=== PATIENT | male | born 1975 | race Caucasian/White ===

== ENCOUNTER 2020-02-12 09:40 | Inpatient (IN) ==
--- NOTE | 2020-02-12 10:04 | PROVIDER DOCUMENTATION ---
HPI-General Adult - General Chief Complaint: Extremity Injury Stated Complaint: extremity pain Time Seen by Provider: 02/12/20 09:48 Source: patient Allergies/Adverse Reactions: Patient Allergies Allergy/AdvReac Type Severity Reaction Status Date / Time Penicillins Allergy Mild RASH Verified 05/05/19 13:40 Home Medications: Home Medication List Medication Instructions Recorded Confirmed Last Taken Type Famotidine [Pepcid] 20 mg PO DAILY #20 tab 05/05/19 Unknown Rx Prednisone 20 mg PO DIRECTED #18 tab 05/05/19 Unknown Rx - History of Present Illness -Gen Adult Nature of Presenting Problems: Pt presents with 3 day h/o RUE swelling and pain. Admits he abuses methamphetamines and injected into right forearm Friday and immediately had swelling in right hand that has progressed to entire RUE. Developed open ulcerations at sites of IVDU on right forearm and wrist that has progressed to shallow open lesions to inner forearms. Has pain in entire RUE from fingers to axilla and now developing pain in right cervical area. Denies n/t in fingers but has limited ROM of fingers and wrist due to pain and swelling. Location of Pain/Injury: reports: upper extremity (right) Pain Radiation: reports: no radiation Body: 1 - erythema, pain, swelling, multiple open lesions and ulcerations from IVDU Quality of Pain: reports: aching, burning, pressure, stabbing, throbbing, tightness Severity: reports: severe Onset/Duration: reports: 3 days ago Timing: reports: getting worse Context/Activities at Onset: reports: other (IVDU) Modifying Factors: improves with: other (has taken seroquel and gabapentin for pain) Associated Symptoms: reports: arm pain, back/neck pain, fatigue, joint pain, malaise, muscle aches. denies: chest pain, cough, diaphoresis, diarrhea, fever/chills, nausea, shortness of breath, sensory/motor loss Similar Symptoms Previously?: No Recently seen or treated by another doctor?: No Review of Systems - Adult - REVIEW OF SYSTEMS - ADULT Constitutional: denies: chills, fever Eyes: denies: blurred vision, double vision Cardiovascular: denies: chest pain Respiratory: denies: cough, shortness of breath Gastrointestinal: denies: diarrhea, nausea, vomiting Musculoskeletal: reports: other (RUE pain and swelling) Integumentary: reports: see HPI Neurological: denies: numbness, paresthesia Psychiatric: reports: anti-depressant use, alcohol/drug dependence All Other Systems: Reviewed and Negative Past History - Adult - PAST MEDICAL HISTORY-ADULT Review of Records: reports: Old Records Reviewed, Nursing Assessment Review, Medications Reviewed Major Childhood Illnesses: reports: denies history Cardiovascular: reports: denies history Respiratory: reports: sleep apnea Gastrointestinal: reports: denies history Obstetrical/Gynecological: reports: denies history Genitourinary: reports: denies history Musculoskeletal: reports: denies history Neurological: reports: Seizures/Epilepsy Endocrine/Immune: reports: Diabetes Other Conditions: reports: denies history - PRIOR SURGERIES/PROCEDURES Surgical/Procedure History: reports: other (top lip ) - IMMUNIZATION STATUS Childhood Immunizations: See Nurse Assessment Flu Vaccine: See Nurse Assessment - FAMILY HISTORY Family History: reviewed, not pertinent - SOCIAL HISTORY Smoking: less than 1 pack/day Provider spent 3-5 mins advising pt. on dangers of tobacco.: Discussed manners to quit use, and f/u contacts for add'l counseling. Substance Use: amphetamines, other (gabapentin and seroquel) Alcohol Use Frequency: never Occupation: unemployed Physical Exam-General - PHYSICAL EXAM-ADULT Initial Vital Signs Reviewed: Yes - CONSTITUTIONAL General Appearance: appears well, alert, mild distress - EYES Eyes: PERRL/EOMI - HEAD, EARS, NOSE, MOUTH & THROAT HENMT: normocephalic/atraumatic. negative: moist mucous membranes (dry mouth) - NECK Neck: non-tender, full range of motion, supple. negative: lymphadenopathy - RESPIRATORY Respiratory: chest non-tender, lungs clear, wheezing (right upper lobe). negative: crackles, rales, rhonchi - CARDIOVASCULAR Cardiovascular: regular rate, rhythm - GASTROINTESTINAL (ABDOMEN) Abdominal Exam: normal bowel sounds, non tender, soft. negative: distended, guarding, rigid, rebound, tenderness, hernia, mass - MUSCULOSKELETAL Extremity: tenderness (RUE with edema circumfrentially, open ulcerations to radial aspect, midforearm and distal radius at wrist. Open shallow lesions to inner forearm that is weaping clear fluid), other (right fingers with good capillary refill. Entire RUE with erythema and warmth) - SKIN Integumentary: swelling, tenderness, warm, other (evidence of IVDU in LUE) - NEUROLOGIC Neurologic: grossly normal, no motor/sensory deficits - PSYCHIATRIC Psych/Mental Status: other (slow mentation) Progress - PLAN OF CARE/RESULTS Progress/Plan/Lab Results: Vital Signs - 8 hr 02/12/20 09:49 Temperature 97.8 F Pulse Rate 114 H Respiratory Rate 19 Blood Pressure 149/90 O2 Sat by Pulse Oximetry 97 Result Diagrams: 02/12/20 10:05 02/12/20 10:05 - CONSULTS/PCP/HOSPITALIST Notification #1 *Consult/PCP/Hospitalist*: Ann-Marie Time Discussed: 12:08 Consult Disposition: Will see in ED Departure - Departure Date of Disposition Decision: 02/12/20 Time of Disposition Decision: 12:08 DIAGNOSIS: Cellulitis of right arm Disposition: ADMITTED INPATIENT 09 Certified Medical Emergency: Emergent Condition: Stable Referrals and Follow-Ups: None,PCP [Primary Care Provider] - - Critical Care Note This patient required my direct & personal management of CC.: No Attestation - Physician/ JAREK Attestation Patient care was provided by Advanced Practice Provider:: Yes Advanced Practice Provider:: Janny Deleon Advanced Practice Provider documentation review:: The Mid-level provider documentation, treatment plan and medical decision making was reviewed by the physician who agrees with all treatment and medical decision making by the [facility]. The physician spent face to face time with patient:: Yes (Dr. Duke at bedside for exam and to explain admission) Advanced Practice Provider documentation review:: Supervising physician onsite and consulted in the evaluation and care of this patient. The physician did have a face to face encounter with the patient.
[2020-02-12 10:18] LABS: URINE SOURCE CLEAN CATCH
[2020-02-12 10:19] LABS: BILIRUBIN URINE NEGATIVE (NEGATIVE); BLOOD URINE NEGATIVE (NEGATIVE); COLOR STRAW; GLUCOSE URINE >1000 mg/dL (NEGATIVE); KETONE URINE 20 mg/dL (NEGATIVE); LEUKOCYTES URINE NEGATIVE (NEGATIVE); NITRITE URINE NEGATIVE (NEGATIVE); PH URINE 6.5; PROTEIN URINE NEGATIVE (NEGATIVE); SP GRAVITY URINE 1.039; TURBIDITY URINE CLEAR (CLEAR); UROBILINOGEN URINE NORMAL (NORMAL)
[2020-02-12 10:21] LABS: UR EPITHELIAL CELLS <10 /HPF (<10); URINE BACTERIA NEGATIVE /HPF; URINE RBC <10 /HPF (<10); URINE WBC <10 /HPF (<10)
[2020-02-12 10:35] LABS: BASO% 0.3 % (0.0-0.8); EOS# 0.08 X1000 (0.0-0.7); EOS% 0.2 % (0.0-10.0); HEMATOCRIT 41.6 % (42.0-52.0); HEMOGLOBIN 14.6 g/dL (14.0-18.0); IMM GRAN# 0.78 X1000 (0.0-0.04); IMM GRAN% 2.1 % (0.0-0.5); LYMPH% 2.9 % (20.5-51.1); MCH 29.8 PG (27-31); MCHC 35.1 g/dL (33-37); MCV 84.9 FL (81-99); MONO# 1.02 X1000 (0.11-0.59); MONO% 2.7 % (1.7-9.3); MPV 10.2 FL (7.4-10.4); NEUT# 34.45 X1000 (1.4-6.5); NEUT% 91.8 % (42.2-75.2); PLT 452 X1000 (130-400); WBC 37.53 X1000 (4.8-10.8)
[2020-02-12 10:43] LABS: UR AMPHETAMINES QUAL NONE DETECTED (NONE DETECT); UR BARBITUATES QUAL NONE DETECTED (NONE DETECT); UR BENZODIAZEPIN QUAL PRESUMPTIVE POSITIVE (NONE DETECT); UR CANNABINOIDS QUAL NONE DETECTED (NONE DETECT); UR COCAINE QUAL NONE DETECTED (NONE DETECT); UR METHADONE QUAL NONE DETECTED (NONE DETECT); UR METHAMPHETAMINE QUAL NONE DETECTED (NONE DETECT); UR OPIATES QUAL NONE DETECTED (NONE DETECT); UR OXYCODONE QUAL NONE DETECTED (NONE DETECT); UR PCP QUAL NONE DETECTED (NONE DETECT); UR PROPOXYPHENE QUAL NONE DETECTED (NONE DETECT); UR TCA QUAL PRESUMPTIVE POSITIVE (NONE DETECT)
[2020-02-12 10:54] LABS: ESTIMATED GFR > 60; INR 1.12; PTT 28.2 Seconds (22.3-41.8)
[2020-02-12 11:17] LABS: AGAP 18; ALBUMIN 2.8 g/dL (3.5-5.0); ALKALINE PHOSPHATASE 144 U/L (32-122); BUN 14 mg/dL (8-22); CALCIUM 8.3 mg/dL (8.8-10.2); CHLORIDE 87 mmol/L (98-107); CK PROFILE 77 U/L (24-204); COSMO 276; CREATININE 0.5 mg/dL (0.7-1.2); GLUCOSE 435 mg/dL (70-104); GOT 24 U/L (10-34); GPT 17 U/L (10-44); POTASSIUM 4.3 mmol/L (3.5-5.1); SODIUM 128 mmol/L (136-145); TCO2 23 mmol/L (25-35); TOTAL PROTEIN 6.2 g/dL (6.3-8.3)
[2020-02-12] MEDS ORDERED: HUMULIN N INSULIN (PARKWAY) SUBQ ONE (11:17)
[2020-02-12] MEDS ORDERED: NS 1,000 ML IV ONE (11:18)
[2020-02-12] MEDS ORDERED: LEVAQUIN 750 MG/D5W 750 MG/150 ML IVPB IV ONE (11:20)
[2020-02-12] MEDS ORDERED: VANCOMYCIN IV PER PHARMACY MISC SCH ×2 (11:30→13:45)
[2020-02-12 11:57] LABS: LYMPHS 4 % (21-51); MONO 7 % (1-9); SEGS 89 % (42-75)
[2020-02-12] MEDS ORDERED: VANCOMYCIN 2,000 MG in NS 500 ML IV ONE (13:00)
--- NOTE | 2020-02-12 13:28 | Vascular Study Report ---
EXAM: Venous U/S Right Arm HISTORY: PAIN AND SWELLING; R/O DVT TECHNIQUE: Right upper extremity venous Doppler ultrasound COMPARISON: None. FINDINGS: Good flow and compressibility in the veins of the right upper extremity. No thrombus. IMPRESSION: No venous thrombosis identified. Electronically signed by Efraín Briscoe 02/12/2020 1:26 PM
[2020-02-12] MEDS ORDERED: ZOFRAN IV PRN (13:32)
[2020-02-12] MEDS: DILAUDID IV PRN ×3 (14:04→23:38)
[2020-02-12] MEDS: NS 1,000 ML IV SCH ×2 (15:38→23:38)
--- NOTE | 2020-02-12 19:33 | HISTORY AND PHYSICAL ---
CHIEF COMPLAINT: Right arm pain. HISTORY OF PRESENT ILLNESS: The patient presented to the hospital noting that for the past 3 days he has had increased pain and swelling of his right upper extremity. States that he was shooting up meth and is certain that he missed his vein as he did not even get high from it. However, over the past couple of days he has had increasing pain and swelling and increased pain of his right upper extremity. He still has good sensation distally in his fingertips and able to move those. ALLERGIES: Penicillin. MEDICATIONS: Pepcid occasionally. REVIEW OF SYSTEMS: The patient denies fevers although states he has had hot and cold chills. Denies headaches or blurry vision. Denies chest pain or palpitations. Denies dysuria, frequency, urgency, hesitancy, polyuria, or polydipsia. Denies skin rashes, weight loss, or weight gain. States he has had pain and swelling in his right upper extremity for the past couple of days continuing to worsen. PAST MEDICAL HISTORY: Significant for long-standing IV drug use, seizures, and diabetes. FAMILY HISTORY: Noncontributory. SOCIAL HISTORY: The patient smokes approximately a pack a day. Frequently uses IV methamphetamines. Also takes gabapentin and Seroquel when he can get them. Denies drinking alcohol. PHYSICAL EXAMINATION: VITAL SIGNS: Reviewed. He is afebrile. Blood pressure is stable. Temperature 97.8 degrees. Respiratory 19. BP 149/90. GENERAL: The patient is awake and pleasant. He is in no current respiratory distress. HEENT: Normocephalic. NECK: Supple. CARDIOVASCULAR: Regular rate. CHEST: Clear. Nonlabored. No wheezing. ABDOMEN: Soft, nondistended, nontender. EXTREMITIES: Moves all extremities. His right upper extremity from his elbow to his wrist is marked edematous circumferentially. He has an open ulceration on the radial aspect of the mid forearm and distal wrist. Fingers have good cap refill and good movement. The entire upper extremity is warm to touch. NEUROLOGIC: He is awake, alert, and oriented. He has no focal neurologic deficits. ASSESSMENT: 1. Cellulitis of right upper extremity secondary to IV drug use. 2. IV drug use. 3. Marked leukocytosis with a white count at 37. 4. Hyponatremia. 5. Hyperglycemia in a patient with diabetes with no previous medications. PLAN: We are going to admit the patient to the hospital. Continue neuro checks on his hand. Start him on vancomycin and Levaquin due to his penicillin allergy. We will follow with sliding scale insulin. Accu-Cheks. Further orders as needed. cc: Jad Jacobsen MD
[2020-02-13] MEDS: VANCOMYCIN 1,450 MG in NS 250 ML IV SCH ×2 (00:41→17:04)
[2020-02-13] MEDS: HUMALOG SUBQ SCH ×4 (06:11→20:33)
[2020-02-13] MEDS: NS 1,000 ML IV SCH (06:13)
[2020-02-13] MEDS: DILAUDID IV PRN ×5 (06:27→22:23)
[2020-02-13 06:44] LABS: HEMATOCRIT 36.8 % (42.0-52.0); HEMOGLOBIN 12.8 g/dL (14.0-18.0); MCH 30.8 PG (27-31); MCHC 34.8 g/dL (33-37); MCV 88.5 FL (81-99); MPV 8.8 FL (7.4-10.4); RBC 4.16 XMIL (4.7-6.1); RDW 14.2 % (11.5-14.5); WBC 32.9 X1000 (4.8-10.8)
[2020-02-13 06:53] LABS: ESTIMATED GFR > 60
[2020-02-13 07:32] LABS: AGAP 15; ALBUMIN 2.2 g/dL (3.5-5.0); ALKALINE PHOSPHATASE 113 U/L (32-122); BUN 13 mg/dL (8-22); CALCIUM 7.4 mg/dL (8.8-10.2); CHLORIDE 85 mmol/L (98-107); COSMO 254; CREATININE 0.5 mg/dL (0.7-1.2); GLUCOSE 302 mg/dL (70-104); GOT 19 U/L (10-34); GPT 12 U/L (10-44); MAGNESIUM 1.7 mg/dL (1.5-2.7); POTASSIUM 4.2 mmol/L (3.5-5.1); TCO2 21 mmol/L (25-35)
[2020-02-13 07:34] LABS: SODIUM 120 mmol/L (136-145)
[2020-02-13 08:49] LABS: HEMOGLOBIN A1C 10.5 % (4.8-6.0)
[2020-02-13] MEDS: LOVENOX SUBQ SCH (10:08)
[2020-02-13] MEDS ORDERED: LEVAQUIN 750 MG/D5W 750 MG/150 ML IVPB IV SCH (12:00)
--- NOTE | 2020-02-13 13:09 | PROGRESS NOTE ---
DATE: 02/13/2020 SUBJECTIVE: Patient notes that his hand is a little less painful, still requiring pain medications. Denies any fevers or chills. Still has good movement and good distal sensation. OBJECTIVE: Vital Signs: He is afebrile. Temperature 98 degrees, pulse 100, respiratory 18, blood pressure 144/71. General: Patient is pleasant. No distress. HEENT: Normocephalic. Neck: Supple. Cardiovascular: Regular rate. Chest: Clear. Abdomen: Soft, nondistended. Extremities: Moves all extremities. His right upper extremity is still swollen, erythematous, tender, although his hand is not quite as tight as it was yesterday. ASSESSMENT: 1. Cellulitis. 2. Marked leukocytosis. 3. IV drug use. 4. Hyponatremia. His sodium level actually has dropped slightly down to 120. 5. Hyperglycemia with likely new onset diabetes. PLAN: We are going to continue the patient in the hospital. Continue antibiotics and symptomatic care. cc: Jad Jacobsen MD
[2020-02-13] MEDS: TYLENOL PO PRN (20:32)
[2020-02-14] MEDS: DILAUDID IV PRN ×6 (02:17→22:04)
[2020-02-14] MEDS: TYLENOL PO PRN ×2 (04:14→19:52)
[2020-02-14] MEDS: VANCOMYCIN 1,450 MG in NS 250 ML IV SCH ×2 (05:20→18:05)
[2020-02-14 06:01] LABS: HEMATOCRIT 35.3 % (42.0-52.0); HEMOGLOBIN 11.5 g/dL (14.0-18.0); MCH 29.5 PG (27-31); MCHC 32.6 g/dL (33-37); MCV 90.5 FL (81-99); MPV 9.1 FL (7.4-10.4); RBC 3.9 XMIL (4.7-6.1); RDW 13.3 % (11.5-14.5); WBC 23.11 X1000 (4.8-10.8)
[2020-02-14] MEDS: HUMALOG SUBQ SCH ×4 (06:23→19:59)
[2020-02-14 06:32] LABS: AGAP 12; ALBUMIN 1.7 g/dL (3.5-5.0); ALKALINE PHOSPHATASE 100 U/L (32-122); BUN 13 mg/dL (8-22); CALCIUM 7.5 mg/dL (8.8-10.2); CHLORIDE 89 mmol/L (98-107); COSMO 255; CREATININE 0.5 mg/dL (0.7-1.2); ESTIMATED GFR > 60; GLUCOSE 226 mg/dL (70-104); GOT 21 U/L (10-34); GPT 13 U/L (10-44); POTASSIUM 3.5 mmol/L (3.5-5.1); SODIUM 123 mmol/L (136-145); TCO2 22 mmol/L (25-35); TOTAL PROTEIN 5.5 g/dL (6.3-8.3)
[2020-02-14] MEDS: LOVENOX SUBQ SCH (08:36)
[2020-02-14] MEDS: NORCO-10 PO PRN ×3 (10:23→21:14)
--- NOTE | 2020-02-14 13:33 | PROGRESS NOTE ---
DATE: 02/14/2020 SUBJECTIVE: The patient notes that his right upper extremity still hurts, but is actually improving. States he is actually getting some movement back in his fingers. He has been trying to move it more after he gets pain medication. IV pain medication helps, but it does not last very long. OBJECTIVE: Vital Signs: Temp 98, pulse 100, respiratory rate 18, BP 144/71. General: The patient is pleasant, in no current respiratory distress, very pleasant to talk with. HEENT: Normocephalic. Neck: Supple. Cardiovascular: Regular rate. Chest: Clear. Abdomen: Soft. Extremities: Moves all extremities. His right upper extremity hand is less erythematous, left edematous, actually has more movement of all 5 fingers than he did previously. He has good distal sensation. ASSESSMENT: 1. Cellulitis with methicillin-resistant Staphylococcus. 2. Methicillin-resistant Staphylococcus bacteremia. 3. Leukocytosis. White count has improved. It was 137, currently down to 23. 4. New-onset diabetes with an A1c of 10.5. 5. Hyponatremia. Sodium is still low at 123. 6. Intravenous drug use. PLAN: Will continue the patient in the hospital. At this point, we are going to stop his Levaquin as his culture and sensitivity is gram-positive cocci, and most likely methicillin- resistant Staph per the lab. Will continue vancomycin. Continue to follow. cc: Jad Jacobsen MD
[2020-02-14 17:14] LABS: ESTIMATED GFR > 60
[2020-02-14 17:19] LABS: AGAP 13; BUN 14 mg/dL (8-22); CALCIUM 7.7 mg/dL (8.8-10.2); CHLORIDE 89 mmol/L (98-107); COSMO 261; CREATININE 0.5 mg/dL (0.7-1.2); GLUCOSE 252 mg/dL (70-104); POTASSIUM 3.7 mmol/L (3.5-5.1); SODIUM 125 mmol/L (136-145); TCO2 24 mmol/L (25-35)
[2020-02-15] MEDS: DILAUDID IV PRN ×5 (01:05→14:52)
[2020-02-15] MEDS: NORCO-10 PO PRN ×3 (03:07→12:45)
[2020-02-15] MEDS: VANCOMYCIN 1,450 MG in NS 250 ML IV SCH (04:34)
[2020-02-15] MEDS: HUMALOG SUBQ SCH ×3 (06:40→16:48)
[2020-02-15] MEDS: LOVENOX SUBQ SCH (08:05)
[2020-02-15 09:57] LABS: ESTIMATED GFR > 60
[2020-02-15 10:01] LABS: AGAP 12; ALBUMIN 2.4 g/dL (3.5-5.0); ALKALINE PHOSPHATASE 92 U/L (32-122); BUN 10 mg/dL (8-22); CALCIUM 7.9 mg/dL (8.8-10.2); CHLORIDE 88 mmol/L (98-107); COSMO 262; CREATININE 0.4 mg/dL (0.7-1.2); GLUCOSE 297 mg/dL (70-104); GOT 18 U/L (10-34); GPT 18 U/L (10-44); POTASSIUM 3.9 mmol/L (3.5-5.1); SODIUM 125 mmol/L (136-145); TCO2 25 mmol/L (25-35); TOTAL PROTEIN 6.8 g/dL (6.3-8.3)
[2020-02-15 10:07] LABS: HEMATOCRIT 39.3 % (42.0-52.0); HEMOGLOBIN 13.1 g/dL (14.0-18.0); MCH 29.6 PG (27-31); MCHC 33.3 g/dL (33-37); MCV 88.9 FL (81-99); MPV 9.2 FL (7.4-10.4); RBC 4.42 XMIL (4.7-6.1); RDW 13.1 % (11.5-14.5); WBC 16.06 X1000 (4.8-10.8)
--- NOTE | 2020-02-15 13:21 | PROGRESS NOTE ---
DATE: 02/15/2020 SUBJECTIVE: Patient reports that the right upper extremity still hurts, is still swollen. I think that General Surgery has been consulted to rule out any abscess. OBJECTIVE: Vital Signs: Temperature 98.3 degrees, heart rate 82, respiratory rate 20, blood pressure 137/74, O2 saturation 100% on room air. General: This is a 45-year-old male, lying in bed, in no acute distress. Cardiovascular: S1, S2 heard. No murmurs, gallops, or rubs. Regular rate and rhythm. Respiratory: Clear bilaterally to auscultation. No work of breathing or using accessory muscles. Abdomen: Soft, nontender to palpation. Bowel sounds present. No organomegaly. Extremities: Moves all extremities. Right upper extremity hand is less erythematous. All the extremities are still swollen. He has more movement of all fingers than he did previously. Neurological: Patient alert and oriented x3. Moves 4 extremities. LABORATORY DATA: White cell count 16.06, hemoglobin 13.1, hematocrit 39.3, platelets 673,000. BMP shows sodium 125, normal creatinine, glucose 297, total protein. 6.8 with albumin 2.4. ASSESSMENT AND PLAN: 1. Cellulitis and bacteremia secondary to methicillin-resistant Staphylococcus aureus. 2. Diabetes mellitus type 2. 3. Hyponatremia. 4. Intravenous drug abuse. PLAN: At this point, we will continue with current antibiotics, in this case, the patient is on vancomycin. We will continue with the same management. We will continue with current medications for diabetes and we have consulted Dr. Sandoval from General Surgery and he recommends to have an echocardiogram and also CT of the right lower extremity to rule out any abscesses that this patient can have. We will continue to monitor this patient closely. cc: Raman Little MD
[2020-02-15] MEDS ORDERED: DIFLUCAN PO SCH (14:45)
--- NOTE | 2020-02-15 15:10 | Diag Imaging Result Doc PS360 ---
EXAM: CT EXT UPPER RIGHT W/CONT - 02/15/2020 HISTORY: abscess suspected TECHNIQUE: CT right arm with intravenous contrast COMPARISON: None. FINDINGS: There is extensive diffuse subcutaneous edema. There is extensive perimuscular and intramuscular fluid at the forearm and upper arm which is suspicious for extensive abscess formation. There is no abnormal gas collection identified. There are no bony erosive or destructive changes identified. IMPRESSION: Severe cellulitis with apparent extensive perimuscular and intramuscular abscess formation along the right upper extremity. This involves the forearm and the upper arm. Electronically signed by Eddie De Souza 02/15/2020 3:07 PM
[2020-02-15] MEDS ORDERED: VANCOMYCIN 2,000 MG in NS 500 ML IV SCH (16:00)
[2020-02-15] MEDS: OXY IR PO PRN (16:49)
[2020-02-15] MEDS ORDERED: TORADOL IV SCH (17:00)
--- NOTE | 2020-02-15 17:02 | GENERAL SURGERY CONSULTATION ---
DATE: 02/15/2020 HISTORY OF PRESENT ILLNESS: This is a 45-year-old gentleman with poorly- controlled diabetes and history of frequent intravenous methamphetamine use who was admitted approximately 72 hours ago. He said within the week he attempted to inject methamphetamine into his forearm, there are 2 separate locations, and apparently had a missed intravenous intent and developed severe cellulitis of his arm. He had a profound leukocytosis initially that has been downtrending. His arm remains swollen. His sensation and intrinsic motion of his hand is intact. I believe he also had Staph epidermidis and Strep pyogenes, positive blood cultures and wound cultures. Blood sugars initially very high but they have been downtrending. MEDICAL HISTORY: Significant for longstanding IV drug use, seizures, diabetes. SURGICAL HISTORY: Denies any vascular procedures. SOCIAL HISTORY: He does smoke regularly. Uses IV amphetamines and also recreational gabapentin and Seroquel. He denies any significant alcohol use. 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 REVIEW OF SYSTEMS: A 10-point review of systems was performed and negative other what mentioned HPI. EXAM: He is afebrile, pulse 93, blood pressure 131/67, O2 saturation 97%.General: He is alert. HEENT: No scleral icterus. Somewhat poor dentition. No cervical mass. Cardiovascular: Normal rate. Pulmonary: No increased work of breathing. Abdomen: Soft. Integument: Warm and dry. Psychiatric: Appropriate affect. Neurologic: No gross deficits. Musculoskeletal: There is extensive induration, erythema extending medially along the forearm. There is 2 wounds with some focal necrosis in the forearm and anterior wrist. His digits have normal capillary refill. Palpable radial and ulnar pulse. I do not feel any cervical adenopathy. LABS: His white count been downtrending 37, down to 16, hematocrit 39, platelets 673,000. His creatinine 0.4, sodium is up to 125, it was 120 on the 19th. Glucose has fluctuated, been as high as 435. His albumin is 2.4. UDS is positive for tricyclics and benzodiazepines. Asked the hospitalist to obtain a CT scan of his arm and on review of that there is extensive subcutaneous edema consistent with cellulitis and possible perimuscular abscesses ASSESSMENT AND PLAN: A 45-year-old gentleman with intravenous drug use. He has cellulitis along his arm, induration. He has bacteremia. On the scan there is some nonspecific edema around the muscle. I do not see any air gas. I do not feel any crepitus on his exam and clinically seems to be somewhat improving. I would recommend transferring this patient to [facility] and obtain an echocardiogram to further evaluate. He will require surgical intervention to debride this. We did risk of bleeding subsequent operations delayed/prolonged healing loss of function. We discussed possibility of amputation if this progresses. He understands all this. He vows to not inject drugs any longer and to quit smoking. We will follow along. cc: MD TIM Cook
[2020-02-15] MEDS ORDERED: VERSED ONE (18:07)
[2020-02-15] MEDS ORDERED: XYLOCAINE-MPF 2% ONE (18:07)
[2020-02-15] MEDS ORDERED: FENTANYL ONE (18:08)
[2020-02-15] MEDS ORDERED: DIPRIVAN 1% ONE (18:08)
[2020-02-15] MEDS ORDERED: DECADRON ONE (19:10)
[2020-02-15] MEDS ORDERED: ZOFRAN ONE (19:10)
[2020-02-15] MEDS ORDERED: PRECEDEX ONE (19:14)
--- NOTE | 2020-02-15 20:29 | OPERATIVE NOTE ---
PROCEDURE DATE: 02/15/2020 PREOPERATIVE DIAGNOSES: 1. Right arm abscess. 2. Intravenous drug use. POSTOPERATIVE DIAGNOSIS: Necrotizing fasciitis of the right arm. PROCEDURE PERFORMED: 1. Incision and drainage of deep abscess, right arm perimuscular. 2. Excisional debridement 40 x 15 cm down to including muscle and fascia. ANESTHESIA: General. ESTIMATED BLOOD LOSS: 250 mL. SPECIMENS: Cultures and necrotic tissue. INDICATIONS: A 45-year-old gentleman who has history of intravenous methamphetamine use. He developed arm swelling, edema and cellulitis. He had hyponatremia, leukocytosis, and bacteremia. CT scan showed deep fluid collections tracking along the muscle consistent with deep abscess. OPERATIVE FINDINGS: There was extensive subcutaneous purulence below the skin and muscle fascia along the entire aspect of his forearm coursing around medially and laterally to the dorsal aspect of his arm. This also tracks superiorly along the antecubital fossa medially and laterally. Muscle is viable. The fascia was necrotic. The skin was viable, but thin centrally and was debrided. No major arterial structures were exposed. There was no exposed bone or tendon. OPERATIVE NOTE: Risks, benefits and alternatives were discussed with patient who consented to the procedure, seen preoperatively and surgical site was confirmed and marked. He was taken to the operating room and placed in supine position. General anesthesia induced. His arm was prepped with Betadine and draped all the way to the axilla and draped including the hand. We made a longitudinal incision along the palmar anterior aspect of his forearm and encountered a large amount of pus. We extended this incision superiorly and inferiorly. The fascia was elevated by the fluid collection, and we opened this widely exposing the muscle. It was viable and well perfused. We disrupted all the fascial loculations down to the level of the wrist cephalad along the antecubital fossa extending our incision to make a counterincision dorsally to provide drainage. We debrided necrotic subcutaneous tissue and fascia widely. We irrigated copiously with lavage. We felt we had adequately drained all the collections. There was an injection site on the lateral aspect of his forearm and at the wrist, and we incorporated these into our debridement zones. After copiously irrigating with Vashe solution, we confirmed hemostasis. Vashe, Kerlix and gauze were used as well as a loose Martin wrap. His hand was perfused at the end of the case. He will require serial debridements and skin graft coverage to salvage his arm, if not progressing to amputation, which we did discuss possibility of preoperatively. We will add clindamycin in conjunction with his vancomycin and monitor him closely with close dressing changes. Suspect he will need serial debridements going forward. Strict glucose control. cc: Antonio Sandoval MD
[2020-02-15] MEDS: DILAUDID ONE ×4 (20:43→20:54)
[2020-02-15] MEDS ORDERED: PHENERGAN ONE (20:52)
[2020-02-16] MEDS: CLINDAMYCIN 900 MG/D5W 900 MG/50 ML IVPB IV SCH ×4 (00:06→17:43)
[2020-02-16] MEDS: DILAUDID IV PRN ×6 (00:10→20:43)
[2020-02-16] MEDS: ZOFRAN IV PRN ×2 (00:10→20:43)
[2020-02-16] MEDS: OFIRMEV 1000 MG/ISOTONIC SOLN 1,000 MG/100 ML BOTTLE IV SCH ×4 (00:10→14:17)
[2020-02-16] MEDS: OXY IR PO PRN ×4 (00:39→21:58)
[2020-02-16] MEDS: VANCOMYCIN 2,000 MG in NS 500 ML IV SCH ×2 (06:14→19:37)
[2020-02-16 06:56] LABS: BASO# 0.05 X1000 (0.0-0.2); BASO% 0.4 % (0.0-0.8); HEMATOCRIT 33.7 % (42.0-52.0); HEMOGLOBIN 11.2 g/dL (14.0-18.0); IMM GRAN% 1.6 % (0.0-0.5); LYMPH# 1.19 X1000 (1.2-3.4); LYMPH% 9.5 % (20.5-51.1); MCH 29.2 PG (27-31); MCHC 33.2 g/dL (33-37); MCV 87.8 FL (81-99); MONO# 0.59 X1000 (0.11-0.59); MONO% 4.7 % (1.7-9.3); MPV 8.9 FL (7.4-10.4); NEUT# 10.53 X1000 (1.4-6.5); NEUT% 83.8 % (42.2-75.2); PLT 704 X1000 (130-400); RBC 3.84 XMIL (4.7-6.1); RDW 12.7 % (11.5-14.5); WBC 12.56 X1000 (4.8-10.8)
[2020-02-16] MEDS ORDERED: HUMALOG SUBQ SCH (07:00)
[2020-02-16 07:41] LABS: AGAP 10; ALBUMIN 1.9 g/dL (3.5-5.0); BUN 15 mg/dL (8-22); CALCIUM 7.8 mg/dL (8.8-10.2); CHLORIDE 93 mmol/L (98-107); COSMO 276; CREATININE 0.6 mg/dL (0.7-1.2); ESTIMATED GFR > 60; GLUCOSE 413 mg/dL (70-104); PHOSPHORUS 3.8 mg/dL (2.7-4.5); SODIUM 128 mmol/L (136-145); TCO2 25 mmol/L (25-35)
[2020-02-16] MEDS: PERIDEX MT SCH ×2 (09:54→20:43)
[2020-02-16] MEDS ORDERED: DILAUDID IV ONE (10:08)
--- NOTE | 2020-02-16 10:47 | PROGRESS NOTE ---
DATE: 02/16/2020 SUBJECTIVE: The patient has been transferred to [facility] because of worsening right upper extremity pain. The patient was taken to the OR and he was found to have a necrotizing fasciitis of the right arm. OBJECTIVE: Vital Signs: Temperature 98.1 degrees, heart rate 91, respiratory rate 20, blood pressure 118/65, O2 saturation 100% on room air. General: This is a 45-year-old male, lying in bed, in no acute distress. Cardiovascular: S1 and S2 heard. No murmurs, gallops, or rubs. Regular rate and rhythm. Respiratory: Clear bilaterally to auscultation. No work of breathing or using accessory muscles. Abdomen: Soft, nontender to palpation. Bowel sounds present. No organomegaly. Extremities: The right upper extremity is covered with dressing and area above the right elbow is also swollen and erythematous as well. The patient is able to move 4 extremities. LABORATORY DATA: Reviewed. ASSESSMENT AND PLAN: 1. Status post excisional debridement, in addition drainage of the abscess because of necrotizing fasciitis in the right arm. Dr. Sandoval is monitoring this patient. He anticipated that this patient will need definitely more wound debridement. The patient is on vancomycin, and clindamycin has been added to his current treatment. Wound Care has been consulted as well. 2. Diabetes mellitus type 2. We will continue with the same management, in this case, sliding scale insulin. The patient has been strongly recommended against using drugs again. We will monitor this patient closely here in the hospital. cc: Raman Little MD MTDFletcher
--- NOTE | 2020-02-16 11:18 | ECHO REPORT ---
ORDER DATE: 02/15/2020 MEASUREMENTS: Septal thickness 0.8, left ventricular internal diameter in diastole 5.7, left ventricular internal diameter in systole 3.7, posterior wall thickness 0.8, left atrium 4.1, aortic root 3.1. SUMMARY: 1. Adequate quality study. 2. Aortic valve is trileaflet and opens normally on 2-dimensional images. Peak gradient across the aortic valve is 14 mmHg. There is trace aortic regurgitation. Mitral, tricuspid, and pulmonic valves are without evidence of structural abnormality with trace mitral regurgitation, trace tricuspid regurgitation, and trace pulmonic insufficiency. The aortic root is normal in size. 3. Normal left ventricular dimensions demonstrated. The estimated left ventricular ejection fraction appears to be approximately 60%. No regional wall motion abnormalities are evident. The left atrium is mildly enlarged. The right atrium and right ventricle are normal in size with normal right ventricular systolic function. 4. No pericardial effusion. 5. Appearance of inferior vena cava suggests normal central venous pressure. CONCLUSIONS: 1. Trace aortic regurgitation and trace mitral regurgitation. 2. Normal left ventricular systolic function without wall motion abnormality evident. 3. Mild left atrial enlargement. cc: MD Raman Sanchez MD
--- NOTE | 2020-02-16 11:20 | GENERAL SURGERY PROGRESS NOTE ---
DATE: 02/16/2020 SUBJECTIVE: Feels okay overnight. No fevers. No tachycardia. OBJECTIVE: Blood pressure 118/55. His right dressing has some serosanguineous drainage. His hand is perfused. The edema, the erythema and induration of his upper arm is improved. The wound bed, I do not see any gross purulence. The muscle seems viable, as do the skin edges. LABORATORY DATA: White count is 12, hematocrit 33. Sodium is rising at 128, creatinine 0.6. Glucose has still been as high as 400. His albumin as low as 1.9. Cultures from yesterday are not show any new growth but his initial cultures were reviewed. ASSESSMENT AND PLAN: This is a 45-year-old gentleman with necrotizing fasciitis of the right forearm, status post debridement. Maisha is going to irrigate his wound with Vashe and change his dressings today and we will reassess for possible further debridement tomorrow. This is going to be a prolonged course. I have discussed with the patient he will need skin grafting, etc. We will continue current care. cc: Antonio Sandoval MD
[2020-02-16] MEDS: HUMALOG SUBQ SCH ×3 (12:52→20:46)
[2020-02-16] MEDS: DIFLUCAN PO SCH (14:17)
[2020-02-16 19:56] LABS: HIV ANTIBODY SCREEN SEE COMMENTS
[2020-02-17] MEDS: DILAUDID IV PRN ×6 (00:06→20:46)
[2020-02-17] MEDS: OFIRMEV 1000 MG/ISOTONIC SOLN 1,000 MG/100 ML BOTTLE IV SCH ×2 (01:32→06:01)
[2020-02-17] MEDS: OXY IR PO PRN ×5 (02:01→23:47)
[2020-02-17] MEDS: CLINDAMYCIN 900 MG/D5W 900 MG/50 ML IVPB IV SCH ×3 (02:01→17:17)
[2020-02-17 03:36] LABS: BASO# 0.14 X1000 (0.0-0.2); BASO% 1.6 % (0.0-0.8); EOS# 0.14 X1000 (0.0-0.7); EOS% 1.6 % (0.0-10.0); HEMATOCRIT 30.5 % (42.0-52.0); HEMOGLOBIN 10.3 g/dL (14.0-18.0); IMM GRAN# 0.19 X1000 (0.0-0.04); IMM GRAN% 2.2 % (0.0-0.5); LYMPH% 22.8 % (20.5-51.1); MCHC 33.8 g/dL (33-37); MCV 88.9 FL (81-99); MONO# 0.88 X1000 (0.11-0.59); MPV 8.7 FL (7.4-10.4); NEUT# 5.43 X1000 (1.4-6.5); NEUT% 61.8 % (42.2-75.2); PLT 629 X1000 (130-400); RBC 3.43 XMIL (4.7-6.1); RDW 12.9 % (11.5-14.5); WBC 8.78 X1000 (4.8-10.8)
[2020-02-17 04:02] LABS: AGAP 8; ALBUMIN 2.2 g/dL (3.5-5.0); BUN 15 mg/dL (8-22); CALCIUM 7.4 mg/dL (8.8-10.2); CHLORIDE 96 mmol/L (98-107); COSMO 275; CREATININE 0.6 mg/dL (0.7-1.2); ESTIMATED GFR > 60; GLUCOSE 342 mg/dL (70-104); PHOSPHORUS 3.4 mg/dL (2.7-4.5); POTASSIUM 4.9 mmol/L (3.5-5.1); SODIUM 130 mmol/L (136-145); TCO2 26 mmol/L (25-35)
[2020-02-17] MEDS: HUMALOG SUBQ SCH ×4 (06:34→21:55)
[2020-02-17] MEDS: PERIDEX MT SCH ×2 (09:15→21:56)
[2020-02-17] MEDS: VANCOMYCIN 2,000 MG in NS 500 ML IV SCH ×2 (09:24→21:55)
--- NOTE | 2020-02-17 10:02 | PROGRESS NOTE ---
DATE: 02/17/2020 SUBJECTIVE: Mr. Diamond was admitted on 02/12/2020, came in with right arm pain. He has no primary care physician. Presented to the hospital after 3 days of increased pain and swelling, right upper extremity. States that he was shooting up meth and is certain that he missed his vein and did not even get high from it. However, over the past couple days, he has increased pain, swelling, increased pain in the right upper extremity. He has good sensation distally in the fingertips. Able to move his fingers. He is allergic to penicillin, so admitted with cellulitis right upper extremity secondary to IV drug use. Marked leukocytosis. White count of 37,000. Hyponatremia and hyperglycemia with diabetes and no previous medications. He says he is feeling a little better. The arm cyanide pot tender and swollen. He remains afebrile. OBJECTIVE: Vital Signs: Temperature 97.8 degrees, pulse 68, respirations 18, blood pressure 119/64. Eyes: Pupils are equal and round. Lungs: Clear in all lung cameron. Cardiovascular exam: Regular rhythm and rate without murmur or S3. Abdomen: Soft. Skin: Warm and dry. : Urine output was 9500 mL. Blood sugars 227, 377, 196 and 283. ASSESSMENT AND PLAN: 1. A 45-year-old gentleman with necrotizing fasciitis of the right forearm, status post debridement. Maisha Mckinley is irrigating the wound using Vashe wash and changing dressings and suspect more debridement today. 2. Diabetes mellitus type 2. Sugars are still a little bit on the high side. Continue sliding scale. 3. Intravenous drug use. The patient is on clindamycin 900 mg intravenous every 8 hours, vancomycin 2 g intravenous every 12 hours, and getting Dilaudid 1 mg intravenous every 3 hours as needed for pain. LABORATORY DATA: Review of labs from today: White count 8780, hematocrit is 30, platelet count is 629,000. Sodium 130, potassium 4.9, chloride 96, BUN 15, creatinine 0.6. cc: Alfa Webb MD
[2020-02-17] MEDS: TYLENOL PO SCH ×3 (12:25→23:46)
--- NOTE | 2020-02-17 13:07 | GENERAL SURGERY PROGRESS NOTE ---
DATE: 02/17/2020 SUBJECTIVE: Still has some pain. Dressing changes are going okay. No fevers, no tachycardia overnight. On exam, his right arm wound has healthy granulation tissue in the bed. Muscles viable. The skin edges are viable. I do not see any obvious purulence emanating from this. No progressive necrosis. White count is now normal at 8, hematocrit 30, creatinine 0.6. Sodium is up to 130. Glucose remains in the 200 to 300 range, but they seem to be improving. His albumin is low at 2.2. ASSESSMENT AND PLAN: This is a gentleman with necrotizing fascitis related to the intravenous drug use of his forearm. Initially we thought we might further debride this, but on exam today I think we are okay. There is some fibrinous tissue in the bed that in the medical terminologist will require debridement to promote healing, but from infectious standpoint, I think we have good source control. I talked to Maisha. She is going to continue to lavage the wound with Vashe and pack it as she is doing. We will continue to monitor and go forward. I am encouraged, but overall he does have a guarded prognosis in limb salvage, and will require multiple procedures in the future. cc: Antonio Sandoval MD
[2020-02-17] MEDS ORDERED: DILAUDID IV ONE (13:16)
[2020-02-17 15:59] LABS: HEPATITIS PROFILE ACUTE SEE COMMENTS
[2020-02-17] MEDS: DIFLUCAN PO SCH (17:16)
[2020-02-18] MEDS: DILAUDID IV PRN ×7 (01:27→23:31)
[2020-02-18] MEDS: CLINDAMYCIN 900 MG/D5W 900 MG/50 ML IVPB IV SCH ×3 (02:53→20:34)
[2020-02-18] MEDS: OXY IR PO PRN ×5 (04:09→21:37)
[2020-02-18] MEDS: HUMALOG SUBQ SCH ×4 (08:00→21:37)
[2020-02-18] MEDS: TYLENOL PO SCH ×3 (08:01→20:28)
[2020-02-18] MEDS: PERIDEX MT SCH ×2 (08:02→20:27)
[2020-02-18] MEDS ORDERED: DILAUDID IV ONE (08:23)
--- NOTE | 2020-02-18 08:52 | PROGRESS NOTE ---
DATE: 02/18/2020 SUBJECTIVE: Mr. Diamond's arm feels better, less swelling. He put him back on his diabetic diet. He is hungry. I am going to let him have a mg of Dilaudid right before he gets dressing changes. It is pretty uncomfortable and causes a lot of pain. OBJECTIVE: Vital Signs: He remains afebrile, temperature 98.2 degrees, pulse 78, respirations 18, blood pressure 125/65. HEENT: Pupils are equal and round. Lungs: Clear in all lung cameron. Cardiovascular: Regular rhythm and rate without murmur or S3. Urine output is 6600 mL. LABORATORY DATA: Blood sugar 283, 319, 329, 329. ASSESSMENT AND PLAN: 1. Necrotizing fasciitis related to intravenous drug use in the right forearm, initially thought to might need further debridement, but did not get further debridement yesterday. He has some fibrinous tissue in the bed that in the wedding planner may require debridement to promote healing, but appears to be improving and appears to be under control. We will see where we are and see what the plans are for discharge. 2. Diabetes mellitus type 2. I put him back on a diabetic diet. 3. History of IV drug use. Currently antibiotic is clindamycin 900 mg IV q.8, vancomycin 2 g IV q.12h. cc: Alfa Webb MD
[2020-02-18] MEDS: VANCOMYCIN 2,000 MG in NS 500 ML IV SCH ×2 (09:49→21:36)
[2020-02-18] MEDS: DIFLUCAN PO SCH (16:07)
--- NOTE | 2020-02-18 20:02 | GENERAL SURGERY PROGRESS NOTE ---
DATE: 02/18/2020 SUBJECTIVE: Pain with dressing changes, otherwise, he is doing okay. No fevers. No tachycardia documented. OBJECTIVE: On exam decreasing induration and erythema with viable skin and well-perfused hand distally. LABORATORY DATA: Glucose was 270 this morning. ASSESSMENT AND PLAN: This is a 45-year-old gentleman with necrotizing fasciitis of right forearm. We will continue dressing changes and antibiotics. He will need further surgery in the future for wound coverage. I discussed this with the patient. Otherwise, we will continue current management. cc: Antonio Sandoval MD
[2020-02-19] MEDS: OXY IR PO PRN ×5 (02:09→21:40)
[2020-02-19] MEDS: TYLENOL PO SCH ×4 (02:09→20:13)
[2020-02-19] MEDS: DILAUDID IV PRN ×7 (03:19→23:17)
[2020-02-19] MEDS: CLINDAMYCIN 900 MG/D5W 900 MG/50 ML IVPB IV SCH ×3 (05:42→20:11)
[2020-02-19] MEDS: HUMALOG SUBQ SCH ×5 (05:43→20:24)
--- NOTE | 2020-02-19 09:20 | PROGRESS NOTE ---
DATE: 02/19/2020 SUBJECTIVE: Mr. Diamond's swelling in his arm is diminished. The pain is less. It is still very painful to get his dressing changed. OBJECTIVE: Vital Signs: Temperature 97.8 degrees, pulse 76, respirations 20, blood pressure 115/62. Eyes: Pupils are equal and round. Lungs: Lungs are clear in all lung cameron Cardiovascular exam: Regular rhythm and rate without murmur or S3. : Urine output is 8200 mL. Blood sugars 319, 329, 270, 268. ASSESSMENT AND PLAN: 1. Has necrotizing fasciitis of the right forearm. So, continue dressing changes and antibiotic. He will need further surgery in the future for wound coverage, and this was discussed with the patient. We are contemplating going to rehabilitation from here, but he will need to stay in the hospital for awhile. 2. Diabetes mellitus type 2. Continue diabetic diet, pattern sugars. 3. History of intravenous drug use. REVIEW OF HIS ORDERS: He is getting oxycodone 5 mg p.o. q. 4 hours p.r.n., and he is getting Dilaudid 1 mg IV q. 3 hours. I will let them give a 2 mg dose right before dressing changes. He is on vancomycin 2 grams intravenous every 12 hours. cc: Alfa Webb MD
[2020-02-19] MEDS: VANCOMYCIN 2,000 MG in NS 500 ML IV SCH ×2 (10:34→21:40)
[2020-02-19] MEDS: PERIDEX MT SCH ×2 (10:37→20:13)
[2020-02-19] MEDS: DILAUDID IV SCH ×2 (10:39→10:40)
[2020-02-19] MEDS: LOVENOX SUBQ SCH (12:10)
--- NOTE | 2020-02-19 13:55 | GENERAL SURGERY PROGRESS NOTE ---
DATE: 02/19/2020 SUBJECTIVE: Continued improvement in erythema and induration in his medial arm. Dressing is more clean today. Hand is well perfused. No fevers. No tachycardia. OBJECTIVE: Blood pressure 129/66. Dressings in place. There is some serosanguineous drainage. Hand is well perfused. He has improved edema, induration and erythema medial arm. DIAGNOSTIC DATA: Glucose 268. ASSESSMENT/PLAN: A 45-year-old male with necrotizing fascitis, right arm. We will continue antibiotics, wound dressing changes. He is requiring IV pain medication for this, and when he is able to tolerate dressing changes without IV medicines, we can allow him to go home. I do not see that he is on Lovenox. I am going to start this today. cc: Antonio Sandoval MD
[2020-02-19] MEDS: DIFLUCAN PO SCH (16:04)
[2020-02-20] MEDS: OXY IR PO PRN ×4 (01:18→20:11)
[2020-02-20] MEDS: DILAUDID IV PRN ×7 (02:15→22:37)
[2020-02-20] MEDS: TYLENOL PO SCH ×4 (02:15→20:12)
[2020-02-20] MEDS: CLINDAMYCIN 900 MG/D5W 900 MG/50 ML IVPB IV SCH ×3 (05:34→20:12)
[2020-02-20] MEDS: HUMALOG SUBQ SCH ×4 (06:24→20:23)
--- NOTE | 2020-02-20 08:25 | PROGRESS NOTE ---
DATE: 02/20/2020 SUBJECTIVE: Mr. Diamond had a pretty good night. He was able to ambulate and remains afebrile. OBJECTIVE: Temperature 98.7 degrees, pulse 96, respirations 18, blood pressure 119/54. Pupils are equal and round. Lungs are clear in all lung cameron. Cardiovascular Examination: Regular rhythm and rate without murmur or S3. Urine output is 5600 mL. Blood sugars 270, 268, 194, and 243. ASSESSMENT AND PLAN: 1. A 45-year-old with necrotizing fasciitis of right arm. Continue topical treatments and antibiotics. Seems to be making improvement. 2. Diabetes mellitus type 2. Continue follow pattern of sugars. 3. History of intravenous drug use. 4. Continue current regimen. I do have him on Diflucan 200 mg daily, clindamycin 900 mg every 8 hours, and vancomycin which he gets 500 mg intravenous every 12. His renal function looks good. Creatinine is 0.6. cc: Alfa Webb MD
[2020-02-20] MEDS: VANCOMYCIN 2,000 MG in NS 500 ML IV SCH ×2 (09:01→21:42)
[2020-02-20] MEDS: PERIDEX MT SCH ×2 (09:02→20:12)
--- NOTE | 2020-02-20 11:04 | GENERAL SURGERY PROGRESS NOTE ---
DATE: 02/20/2020 SUBJECTIVE: Improved edema, induration, erythema. No fevers. No tachycardia. Decreased drainage. Pain is improving. He is tolerating dressing changes. OBJECTIVE: On exam, he is not tachycardic. No fevers. His dressing is clean. His hand is well perfused, and the edema and cellulitis of his upper arms near resolved. Glucose 243. ASSESSMENT/PLAN: A 45-year-old gentleman with necrotizing fasciitis of his right arm related to intravenous drug use. He has been on appropriate antibiotics. We will check his wound tomorrow to determine need for further debridement. Otherwise, we will plan on switching to oral antibiotics and maybe letting him go home in the near future. Pain control is the main issue right now. cc: Antonio Sandoval MD
[2020-02-20] MEDS: DILAUDID IV SCH (12:22)
[2020-02-20] MEDS: LOVENOX SUBQ SCH (12:28)
[2020-02-20] MEDS: DIFLUCAN PO SCH (15:09)
[2020-02-20] MEDS ORDERED: CALMOSEPTINE OINTMENT TOP PRN (16:44)
[2020-02-21] MEDS: OXY IR PO PRN ×4 (00:19→22:12)
[2020-02-21] MEDS: DILAUDID IV PRN ×7 (02:50→23:25)
[2020-02-21] MEDS: TYLENOL PO SCH ×4 (03:19→20:03)
[2020-02-21] MEDS: CLINDAMYCIN 900 MG/D5W 900 MG/50 ML IVPB IV SCH ×3 (05:11→20:02)
[2020-02-21] MEDS: HUMALOG SUBQ SCH ×4 (06:48→22:11)
--- NOTE | 2020-02-21 07:15 | GENERAL SURGERY PROGRESS NOTE ---
DATE: 02/21/2020 SUBJECTIVE: No events overnight. No fevers. No tachycardia. OBJECTIVE: Blood pressure 109/52. In general, he is alert. Upper arm erythema is now essentially resolved. His hand is well perfused. LABORATORY: Glucose 278. Otherwise, he has not had his labs in several. ASSESSMENT/PLAN: A 45-year-old gentleman with necrotizing fascitis. We will check his labs and change dressing. If no further necrosis that warrants debridement, we will plan for him to go home soon with oral antibiotics allowing his acute infection episode to resolve prior to attempts at wound coverage. We will talk to Maisha today about it. cc: Antonio Sandoval MD
[2020-02-21 07:17] LABS: BASO# 0.19 X1000 (0.0-0.2); BASO% 1.6 % (0.0-0.8); EOS# 0.05 X1000 (0.0-0.7); EOS% 0.4 % (0.0-10.0); HEMOGLOBIN 11.6 g/dL (14.0-18.0); IMM GRAN# 0.09 X1000 (0.0-0.04); IMM GRAN% 0.8 % (0.0-0.5); LYMPH# 1.23 X1000 (1.2-3.4); LYMPH% 10.5 % (20.5-51.1); MCH 29.7 PG (27-31); MCHC 33.1 g/dL (33-37); MCV 89.5 FL (81-99); MONO# 1.06 X1000 (0.11-0.59); MONO% 9.1 % (1.7-9.3); MPV 8.1 FL (7.4-10.4); NEUT# 9.04 X1000 (1.4-6.5); NEUT% 77.6 % (42.2-75.2); PLT 830 X1000 (130-400); RBC 3.91 XMIL (4.7-6.1); RDW 13.2 % (11.5-14.5); WBC 11.66 X1000 (4.8-10.8)
[2020-02-21 07:30] LABS: AGAP 12; BUN 10 mg/dL (8-22); CALCIUM 8.3 mg/dL (8.8-10.2); CHLORIDE 91 mmol/L (98-107); COSMO 266; CREATININE 0.6 mg/dL (0.7-1.2); ESTIMATED GFR > 60; GLUCOSE 305 mg/dL (70-104); POTASSIUM 4.5 mmol/L (3.5-5.1); SODIUM 127 mmol/L (136-145); TCO2 24 mmol/L (25-35)
--- NOTE | 2020-02-21 07:45 | PROGRESS NOTE ---
DATE: 02/21/2020 SUBJECTIVE: Mr. Diamond is a 45-year-old. He said he had a good night. His arm feels better. He is hoping maybe he can go home today. He thinks he understands how to take care of his wound and dress his arm. OBJECTIVE: Temperature 98.8 degrees, pulse 94, respirations 16, blood pressure 109/53. Pupils are equal and round. Lungs are clear in all lung cameron. Cardiovascular Examination: Regular rhythm and rate without murmur or S3. Urine output is 2000 mL. Blood sugar 194, 243, 231, and 272. ASSESSMENT/PLAN: 1. Necrotizing fasciitis of the right arm. There is no further necrosis that warrants debridement. He could go home with oral antibiotics. Allowing his infection to resolve prior to wound coverage so discussed with surgery and Maisha today, and see if that is okay. 2. Diabetes mellitus type 2. Sugars under good control. 3. History of intravenous drug use. 4. Looking at his cultures, grew out Streptococcus pyogenes and Staphylococcus epidermidis. He is allergic to penicillins. It looks like it is sensitive to Levaquin but probably let him go home on tetracycline or on doxycycline as it is sensitive to that. We will discuss with the team. cc: Alfa Webb MD
--- NOTE | 2020-02-21 08:01 | DISCHARGE SUMMARY ---
ADMISSION DATE: 02/12/2020 DISCHARGE DATE: 02/21/2020 HISTORY OF PRESENT ILLNESS: Mr. Diamond was admitted on 02/12/2020 with dysphagia. He will be discharged on 02/21/2020. This is a 45-year-old who presented to the hospital with right arm pain, a 3-day history of increasing pain and swelling of the right upper extremity. States he was shooting up methamphetamine and he missed his vein, and did not get high from it. However, over the past couple days, he has had increased pain and swelling, increased pain in the right arm. Extremity on admission appeared to have cellulitis and deep tissue infection in that right arm. Marked leukocytosis. HOSPITAL COURSE: He was put on empiric antibiotics. He had an echocardiogram done on 02/15/2020 that showed trace aortic regurgitation, trace mitral regurgitation, normal left ventricular systolic function without wall motion abnormalities, and mild left atrial enlargement. Did not see vegetations. Upper extremity CT was done, severe cellulitis and apparent extensive perimuscular and intramuscular abscess formation along the right upper extremity, involves the forearm and the upper arm. Dr. Ko Sandoval drained the abscess, incision and drainage of deep abscess, right arm perimuscular, about 40 x 15 cm down to and including muscle and fascia. Received topical care. It appears he will need further surgery for wound coverage but felt it was improving and he could go home. Continue antibiotics and return for wound coverage. His microbiology from his wound showed Staphylococcus epidermidis and Streptococcus pyogenes group A. Both appear to be sensitive to doxycycline. We will set him up for doxycycline 100 mg twice a day. He has been trained on how to change his wounds and dressings and see if he can go home today with followup in a couple weeks to see Dr. Ko Sandoval back again. cc: Alfa Webb MD
[2020-02-21 08:06] LABS: BASO 1 % (0-1); LYMPHS 12 % (21-51); MONO 10 % (1-9); SEGS 77 % (42-75)
[2020-02-21] MEDS: VANCOMYCIN 2,000 MG in NS 500 ML IV SCH ×2 (09:04→20:16)
[2020-02-21] MEDS: PERIDEX MT SCH ×2 (09:06→20:03)
[2020-02-21] MEDS: LOVENOX SUBQ SCH ×2 (10:22→13:04)
[2020-02-21] MEDS: DILAUDID IV SCH (14:13)
[2020-02-21] MEDS: DIFLUCAN PO SCH (16:50)
[2020-02-22] MEDS: DILAUDID IV PRN ×3 (03:01→15:14)
[2020-02-22] MEDS: TYLENOL PO SCH ×3 (03:02→15:14)
[2020-02-22] MEDS: CLINDAMYCIN 900 MG/D5W 900 MG/50 ML IVPB IV SCH ×2 (04:52→12:40)
[2020-02-22] MEDS: HUMALOG SUBQ SCH ×2 (06:50→11:16)
[2020-02-22] MEDS: PERIDEX MT SCH (08:52)
[2020-02-22] MEDS: VANCOMYCIN 2,000 MG in NS 500 ML IV SCH (08:53)
[2020-02-22] MEDS: OXY IR PO PRN (11:16)
[2020-02-22] MEDS: LOVENOX SUBQ SCH (11:16)
[2020-02-22 11:38] VITALS: BP 146/55
[2020-02-22] MEDS: DILAUDID IV SCH (11:53)
--- NOTE | 2020-02-22 13:14 | GENERAL SURGERY PROGRESS NOTE ---
DATE: 02/22/2020 SUBJECTIVE: Doing well. Dressing changes are going well. Less pain. The erythema and induration have resolved. No fevers. No tachycardia. OBJECTIVE: The wound bed is beefy red and healthy. There is some fibrous tissue surrounding but minimal amounts. No purulence. LABORATORY DATA: White count yesterday was 11, creatinine 0.6, glucoses fluctuate, mostly in the 200. ASSESSMENT AND PLAN: A 45-year-old gentleman with necrotizing fasciitis of the right arm. Wound is clean. We will allow it to granulate which is starting to developed now, but mostly this is just muscle in the bed and we will follow him in 2 weeks in [place] for evaluation of possible skin grafting. The plan is to discharge him on doxycycline with Dr. Webb. I have talked to him about this. cc: Antonio Sandoval MD
[2020-02-22] MEDS: DIFLUCAN PO SCH (15:14)
--- NOTE | 2020-02-22 19:07 | PROGRESS NOTE ---
DATE: 02/22/2020 SUBJECTIVE: The patient seems to be stable. He spent a good night. Surgery department already evaluated this patient. Discharge summary has been done yesterday by Dr. Webb. I will continue with the same plan and give him some pain medication and also doxycycline to go home with. He actually received around 7 days of clindamycin and I will give him 7 more days of doxycycline, which is sensitive. PHYSICAL EXAMINATION: Vital signs: Temperature 98.7 degrees, pulse 81, respiratory rate 16, blood pressure 146/55, oxygen saturation 99 on room air. HEENT: Head normocephalic. No trauma. PERRLA. Neck: Supple. No JVD. No masses. Central trachea. Chest: Clear to auscultation. No wheezing. No rales. Abdomen: Soft, nontender, nondistended. No hepatosplenomegaly. Extremities: His right arm is completely wrapped and his hand is a little bit swollen, but he is able to move his hand and he is not having any kind of problem with sensitivity. Neurological: Awake, alert, oriented. LABORATORY: No lab work today. Laboratory from yesterday: WBC 11.6, hemoglobin 11.6, hematocrit 35, platelets 830,000. Sodium 127, potassium 4.5, chloride 91, bicarbonate 24, BUN 10, creatinine 0.6, glucose 261 today, calcium 8.3. ASSESSMENT AND PLAN: 1. Status post excisional debridement and drainage of abscess due to necrotizing fasciitis in the right arm. 2. Uncontrolled type 2 diabetes. 3. Hyponatremia. 4. Leukocytosis. 5. History of intravenous drug use. DISCHARGE MEDICATIONS: 1. Doxycycline 100 mg p.o. b.i.d. 2. Metformin 500 mg p.o. b.i.d. 3. Oxycodone 5 mg p.o. q.6 hours as needed x20 pills. I had a large conversation with this patient about diabetes and treatment. This patient has a history of intravenous drug use, so needles for him are not going to be a good option. I talked to him about diet and metformin. I gave him a prescription for doxycycline and oxycodone to take p.o., and I sent the prescription for metformin to the pharmacy. I told him that he needs to stay away from drugs, since this problem basically happened because of intravenous drug use. I told the patient that he has diabetes and he seems to understand. I told him that he needs to try to control this with diet and also will add metformin to his medications, which I already sent to the pharmacy. He will need to follow up in 2 weeks at [facility] for possible skin graft evaluation. Surgery on board. Also, he will need to call [facility] at discharge to follow up with them as well. As per the patient, he will go home with his mother. cc: Gray Meyer MD
== END 2020-02-22 16:01 | disposition home or self-care (01) | DRG 501 ==
LOC: P.ED 09:40 → P.MEDSURG 13:55 → SUATTDRO 13:55 → 4N 02-15 18:23 → UNDODISIN 02-17 16:30
PROVIDERS: ATTEND Internal Medicine